=== PATIENT | male | born 1975 | race African-American/Black ===

== ENCOUNTER 2017-05-02 08:50 | Emergency (ER) | payer SELFPAY ==
[~2017-05-02] VITALS: Ht 188 cm; Wt 75.0 kg
[2017-05-02] MEDS ORDERED: ATROPINE SYRINGE 0.1 MG/ML, 10ML ONE (09:09)
[2017-05-02] MEDS ORDERED: ONDANSETRON 2MG/ML, 2ML ONE (09:17)
[2017-05-02] MEDS ORDERED: MORPHINE SULFATE 4 MG/ML, 1ML ONE ×2 (09:17→09:36)
[2017-05-02] MEDS: MORPHINE SULFATE 4 MG/ML, 1ML IVPush PRN ×2 (09:21→09:38)
[2017-05-02] MEDS ORDERED: ONDANSETRON 2MG/ML, 2ML IVPush ONE (09:30)
[2017-05-02] MEDS ORDERED: SODIUM CHLORIDE FLUSH 10ML SYR IVF ONE (09:30)
[2017-05-02] MEDS ORDERED: PROPOFOL 10 MG/ML, 20ML IVPush ONE (09:30)
[2017-05-02] MEDS ORDERED: PROPOFOL 10 MG/ML, 20ML ONE ×2 (09:41→10:06)
[2017-05-02 10:51] VITALS: BP 147/84
== END 2017-05-02 11:15 | disposition home or self-care (01) ==
LOC: ED 11:00
DX: S43.005A Unspecified dislocation of left shoulder joint, initial encounter (principal); G89.11 Acute pain due to trauma; X58.XXXA Exposure to other specified factors, initial encounter; Y93.89 Activity, other specified; Y92.89 Other specified places as the place of occurrence of the external cause; Y99.8 Other external cause status
CPT/HCPCS: 23650; 73030; 96374; 96375; 99152; 99153; 99285; J2405; J2704